=== PATIENT | female | born 1990 | race Caucasian/White ===

== ENCOUNTER 2018-08-17 07:20 | Emergency (ER) | payer OTHER ==
[~2018-08-17] VITALS: Ht 177.8 cm; Wt 204.1 kg
[2018-08-17 07:52] LABS: URINE BILIRUBIN NEGATIVE (Negative); URINE BLOOD 3+ (Negative); URINE CLARITY CLEAR; URINE COLOR YELLOW; URINE GLUCOSE-RANDOM* NEGATIVE (Negative); URINE KETONES NEGATIVE (Negative); URINE LEUKOCYTES-REFLEX TRACE (Negative); URINE NITRITE-REFLEX NEGATIVE (Negative); URINE PROTEIN (DIPSTICK) NEGATIVE (Negative); URINE SPECIFIC GRAVITY 1.015 (1.005-1.035); URINE UROBILINOGEN 0.2 E.U./dl (0.2-1.0)
[2018-08-17 07:56] LABS: ABSOLUTE NEUTROPHILS 8.9 thou/uL (1.4-8.2); BASOPHILS 0.9 % (0.0-2.0); EOSINOPHILS 0.7 % (0.0-3.0); HEMATOCRIT 42.1 % (37.0-47.0); HEMOGLOBIN 14.2 gm/dL (12.0-15.0); LYMPHOCYTES 19.7 % (24.0-44.0); MCH 26.4 pg (26.0-34.0); MCHC 33.7 g/dL (28.0-37.0); MCV 78.3 fL (80.0-100.0); MONOCYTES 5.3 % (1.0-8.0); PLATELET COUNT 310 thou/uL (150-400); POLYS 73.4 % (36.0-66.0); RBC 5.38 mil/uL (4.20-5.00); RDW 14.2 % (10.5-14.5); WBC 12.1 thou/uL (4.0-11.0)
[2018-08-17 08:01] LABS: CASTS None Seen /LPF (None Seen); CRYSTALS None Seen /LPF (None Seen); SQUAMOUS 4-10 Moderate /LPF (0-3); URINE RBC >20 Many /HPF (0-2)
[2018-08-17 08:03] LABS: BACTERIA-REFLEX 1-9 Few /HPF (None Seen); URINE WBC-REFLEX 0-5 Rare /HPF (0-5)
[2018-08-17 08:06] LABS: CALCIUM 8.8 mg/dL (8.5-10.1); CREATININE 0.8 mg/dL (0.6-1.0); POTASSIUM 4.3 mmol/L (3.5-5.1)
[2018-08-17 08:12] LABS: ALBUMIN 3.3 g/dL (3.4-5.0); TOTAL BILIRUBIN 0.7 mg/dL (<0.1-1.0); TOTAL PROTEIN 7.1 g/dL (6.4-8.2)
[2018-08-17] MEDS ORDERED: IBUPROFEN 800800 M1 PO (09:53)
[2018-08-17] MEDS ORDERED: ZOFRAN ODT4 MG PO (09:53)
[2018-08-17 10:16] VITALS: BP 164/52
== END 2018-08-17 10:17 | disposition home or self-care (01) ==
LOC: ER 07:20
PROVIDERS: Emergency Medicine
DX: N92.0 Excessive and frequent menstruation with regular cycle (principal); R42 Dizziness and giddiness; Z88.1 Allergy status to other antibiotic agents; Z88.0 Allergy status to penicillin